=== PATIENT | male | born 1970 | race Caucasian/White ===

== ENCOUNTER 2016-11-26 12:27 | Emergency (ER) | payer SELFPAY ==
[2016-11-26] MEDS ORDERED: ASPIRIN 81 MG TABLET, CHEWABLE PO ONE (13:01)
[2016-11-26] MEDS ORDERED: NITROGLYCERIN 0.4 MG/TAB 25 TAB/BOTTLE SL ONE (13:08)
--- NOTE | 2016-11-26 13:11 | ER Document Report ---
ED General - General Chief Complaint: Chest Pain Stated Complaint: CHEST PAIN Time Seen by Provider: 11/26/16 13:00 Mode of Arrival: Ambulatory Information source: Patient Notes: Patient presents emergency department with complaints of midsternal chest pain, tightness. Reports symptoms started approximately 630 this morning. Reports pain increased while he was at work. He also complains of pain going down his left arm. Patient is diaphoretic. Reports hurts to take a deep breath. Patient denies fever vomiting diarrhea. Pt holding bilateral arms in flexed position. Denies recent trauma. Reports he lifted a heavy motor yesterday. Denies history of cardiac disease but reports father has a history of cardiac disease. TRAVEL OUTSIDE OF THE [place] IN LAST 30 DAYS: No - HPI Onset: This morning Onset/Duration: Persistent, Worse Quality of pain: Other - tightness Severity: Severe Pain Level: 5 Exacerbated by: Deep breathing Relieved by: Denies Similar symptoms previously: No Recently seen / treated by doctor: No - Related Data Allergies/Adverse Reactions: No Known Allergies Allergy (Verified 11/26/16 16:26) Home Medications: Current Home Medications No Home Medications 11/26/16 [History] Past Medical History - General Information source: Patient - Social History Smoking Status: Unknown if Ever Smoked Cigarette use (# per day): No Chew tobacco use (# tins/day): No Frequency of alcohol use: None Drug Abuse: None Lives with: Family Family History: CAD Musculoskeltal Medical History: Reports Hx Musculoskeletal Trauma Traumatic Medical History: Reports: Hx Fractures Past Surgical History: Reports: Hx Orthopedic Surgery - right femur - Immunizations Immunizations up to date: Yes Hx Diphtheria, Pertussis, Tetanus Vaccination: Yes Review of Systems - Review of Systems Notes: Review HPI for review of systems., All other systems negative Physical Exam - Vital signs Vitals: Resp BP Pulse Ox 18 131/87 H 96 11/26/16 14:01 11/26/16 14:01 11/26/16 14:01 - Notes Notes: PHYSICAL EXAMINATION: GENERAL: nontoxic looking, shaking HEAD: Atraumatic, normocephalic. EYES: Pupils equal round extraocular movements intact, sclera anicteric, conjunctiva are normal. ENT: nares patent, oropharynx clear without exudates. Moist mucous membranes. NECK: Normal range of motion, supple without lymphadenopathy LUNGS: CTAB and equal. No wheezes rales or rhonchi. HEART: Regular rate and rhythm without murmurs ABDOMEN: Soft, no tenderness. No guarding, no rebound EXTREMITIES: Normal range of motion, no pitting edema. No cyanosis. NEUROLOGICAL: Cranial nerves grossly intact. Normal sensory/motor exams. PSYCH: Normal mood, normal affect. SKIN: Warm, Dry, normal turgor, no rashes or lesions noted Course - Re-evaluation Re-evalutation: 11/26/16 13:56 Reports he is feeling a little bit better chest still hurts tender to palpation ibuprofen offered patient requests naproxen. Reports the sublingual nitro made his head throb. 11/26/16 15:22 Pt feeling better, updated on CK, BUN/Cr. , discussed past medical history with patient. He admits to recent ETOH last night- "more than I should've had". He reports he has been sober for a while. Denies recent drug use but reports hx of cocaine use, marijuana a few months ago. 11/26/16 16:43 Urine drug screen + for amphetamines, pt reports he takes adderall. Pt reports he approximately a 5th of whiskey every 2 days for the past year. Pt is tearful. 11/26/16 17:24 Patient drinking p.o. fluids reports he feels much better. denies Chest pain. BUN/creatinine almost back to normall. CK decreased. Patient was encouraged to stop drinking alcohol. Emotional support given. - Vital Signs Vital signs: Temp Pulse Resp BP Pulse Ox 15 142/93 H 98 11/26/16 17:35 11/26/16 17:35 11/26/16 17:35 - Laboratory Result Diagrams: 11/26/16 13:13 11/26/16 16:22 Laboratory results interpreted by me: 11/26/16 11/26/16 11/26/16 13:13 14:57 14:57 BUN 21 H Creatinine 1.39 H Est GFR (Non-Af Amer) 55 L Creatine Kinase 466 H Urine Protein 30 H Urine Ketones TRACE H Urine Bilirubin SMALL H Ur Leukocyte Esterase TRACE H Urine Creatinine 473.5 H 11/26/16 11/26/16 16:22 16:22 BUN Creatinine 1.30 H Est GFR (Non-Af Amer) Creatine Kinase 383 H Urine Protein Urine Ketones Urine Bilirubin Ur Leukocyte Esterase Urine Creatinine - Diagnostic Test Radiology reviewed: Image reviewed, Reports reviewed - neg X-ray - EKG Interpretation by Me EKG shows normal: Sinus rhythm Rate: Tachycardia When compared to previous EKG there are: No significant change Discharge - Discharge Clinical Impression: Chest pain in adult, Elevated blood pressure reading Condition: Stable Disposition: HOME, SELF-CARE Instructions: Chronic Alcoholism ([facility]), Family Physicians / Practices Additional Instructions: *You have been evaluated for chest pain of unclear cause, elevated blood pressure reading *Avoid alcohol *Push fluids *Follow up with a primary care provider Monday for recheck *Return to ED for worsening condition, changes, needs Monitor your blood pressure. Your blood pressure was elevated today. This may be because you were anxious, in pain or because you need medication. It is important to follow up with your primary care provider for full evaluation. Forms: Elevated Blood Pressure
[2016-11-26 13:33] LABS: ABSOLUTE LYMPHOCYTES (AUTO) 1.1 10^3/uL (0.5-4.7); ABSOLUTE MONOCYTES (AUTO) 0.9 10^3/uL (0.1-1.4); ABSOLUTE NEUT (AUTO) 5.1 10^3/uL (1.7-8.2); BASOPHILS % (AUTO) 0.4 % (0-2); EOSINOPHILS % (AUTO) 0.4 % (0-6); HEMATOCRIT 42.9 % (37.9-51.0); HGB HCT DIFFERENCE 2.1; LYMPHOCYTES % (AUTO) 15.5 % (13-45); MEAN CORPUSCULAR HEMOGLOBIN 32.2 pg (27.0-33.4); MEAN CORPUSCULAR HGB CONC 34.9 g/dL (32.0-36.0); MEAN CORPUSCULAR VOLUME 92 fl (80-97); MONOCYTES % (AUTO) 12.7 % (3-13); RED BLOOD COUNT 4.65 10^6/uL (4.35-5.55); RED CELL DISTRIBUTION WIDTH 13.6 % (11.5-14.0); WHITE BLOOD COUNT 7.1 10^3/uL (4.0-10.5)
[2016-11-26 13:54] LABS: ALANINE AMINOTRANSFERASE 38 U/L (21-72); ALBUMIN 4.6 g/dL (3.5-5.0); ALKALINE PHOSPHATASE 58 U/L (38-126); ANION GAP 12 (5-19); ASPARTATE AMINO TRANSFERASE 49 U/L (17-59); BILIRUBIN,DIRECT 0.4 mg/dL (0.0-0.4); BILIRUBIN,TOTAL 0.7 mg/dL (0.2-1.3); BLOOD UREA NITROGEN 21 mg/dL (7-20); CALCIUM 9.9 mg/dL (8.4-10.2); CARBON DIOXIDE 28 mmol/L (22-30); CHLORIDE 100 mmol/L (98-107); CREATINE KINASE 466 U/L (55-170); CREATININE RESULT 1.39 mg/dL (0.52-1.25); GLUCOSE 88 mg/dL (75-110); POTASSIUM 4.5 mmol/L (3.6-5.0); SODIUM 140.3 mmol/L (137-145); TOTAL PROTEIN 7.6 g/dL (6.3-8.2)
--- NOTE | 2016-11-26 13:54 | RADIOLOGY REPORT (SQ) ---
EXAM DESCRIPTION: CHEST SINGLE VIEW COMPLETED DATE/TIME: 11/26/2016 1:28 pm REASON FOR STUDY: chest pain COMPARISON: Chest films 05/03/2016 EXAM PARAMETERS: NUMBER OF VIEWS: One view. TECHNIQUE: Single frontal radiographic view of the chest acquired. RADIATION DOSE: NA LIMITATIONS: None. FINDINGS: LUNGS AND PLEURA: No opacities, masses or pneumothorax. No pleural effusion. MEDIASTINUM AND HILAR STRUCTURES: No masses. Contour normal. HEART AND VASCULAR STRUCTURES: Heart normal in size. Normal vasculature. BONES: No acute findings. HARDWARE: None in the chest. OTHER: No other significant finding. IMPRESSION: NO ACUTE RADIOGRAPHIC FINDING IN THE CHEST. TECHNICAL DOCUMENTATION: JOB ID: [id number]
[2016-11-26] MEDS ORDERED: NAPROXEN 250 MG TABLET PO ONE (13:55)
[2016-11-26 14:06] LABS: CREATINE KINASE MB 2.14 ng/mL (<4.55)
[2016-11-26 14:08] LABS: TROPONIN I < 0.012 ng/mL
[2016-11-26] MEDS ORDERED: NORMAL SALINE 1000 ML 1,000 ML IV ONE ×2 (14:27→16:34)
[2016-11-26 15:49] LABS: URINE BARBITURATES SCREEN NEGATIVE; URINE METHADONE SCREEN NEGATIVE; URINE OPIATES LOW NEGATIVE; URINE PHENCYCLIDINE SCREEN NEGATIVE
[2016-11-26 16:04] LABS: APPEARANCE,URINE CLEAR; BILIRUBIN,URINE SMALL (NEGATIVE); GLUCOSE, URINE NEGATIVE (NEGATIVE); KETONES,URINE TRACE mg/dL (NEGATIVE); LEUKOCYTE ESTERASE,URINE TRACE (NEGATIVE); NITRITE,URINE NEGATIVE (NEGATIVE); PROTEIN,URINE 30 mg/dL (NEGATIVE); URINE SPECIFIC GRAVITY 1.035; UROBILINOGEN,URINE NEGATIVE mg/dL (<2.0)
[2016-11-26 16:48] LABS: BLOOD UREA NITROGEN 19 mg/dL (7-20); CREATINE KINASE 383 U/L (55-170)
[2016-11-26 17:42] VITALS: BP 142/93
--- NOTE | 2016-11-27 21:26 | EKG REPORT ---
SEVERITY:- OTHERWISE NORMAL ECG - SINUS TACHYCARDIA : Confirmed by: Sixto Peters MD 27-Nov-2016 21:25:09
== END 2016-11-26 17:52 | disposition home or self-care (01) ==
LOC: ER 12:27
DX: R07.9 Chest pain, unspecified (principal); R03.0 Elevated blood-pressure reading, without diagnosis of hypertension; M79.602 Pain in left arm; R61 Generalized hyperhidrosis; X50.0XXA Overexertion from strenuous movement or load, initial encounter
CPT/HCPCS: 99285; 36415; 82553; 84520; 82550; 82565; 82570; 85025; 80053; 81001; 84484; 80307; 71010; 93010; J7030

== ENCOUNTER 2017-10-08 10:08 | Emergency (ER) | payer BC ==
[2017-10-08 11:25] VITALS: BP 134/79
--- NOTE | 2017-10-08 11:25 | ER Document Report ---
ED General - General Chief Complaint: Stiff Neck Stated Complaint: ARM NUMBNESS Time Seen by Provider: 10/08/17 10:24 Notes: Patient says he is having tingling and numbness of his left arm and also feels he stumbling when he tries to walk. He says the tingling and numbness in the hands has been going on intermittently for a couple of years. He says it only happens when he is laying down and reading his telephone and stops when he moves his arms. He has never been told he has carpal tunnel syndrome. Says he is having some stumbling today. 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 He says he went to work as a hannah says he is never lost consciousness or fallen, but feels lightheaded. 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 He says this is the first time he has had problems with gripping and dropping objects. Patient says he fell from some scaffolding last week and hit his right head and neck and right side. He has had some headache since last night, but it went away during the night but came back today. Has some heavy feeling when he is breathing, but denies chest pain. Says he has a right hip that needs to be replaced because of arthritis but does not have the money. Patient says that he has been from his for about 2 months, something he did not want to happen but has no control over. Said he was extremely sad and cried and cried when it happened. Went out with his son and last night to celebrate Father's Day. Not sure if stress could be playing a role in some of the symptoms that he is having. TRAVEL OUTSIDE OF THE [place] IN LAST 30 DAYS: No - Related Data Allergies/Adverse Reactions: No Known Allergies Allergy (Verified 10/08/17 10:09) Past Medical History - Social History Smoking Status: Never Smoker Frequency of alcohol use: None Drug Abuse: None Family History: Reviewed & Not Pertinent, CAD Patient has suicidal ideation: No Patient has homicidal ideation: No - Medical History Medical History: Negative - Past Medical History Cardiac Medical History: Denies: Hx Coronary Artery Disease, Hx Heart Attack Neurological Medical History: Denies: Hx Cerebrovascular Accident, Hx Seizures Endocrine Medical History: Denies: Hx Diabetes Mellitus Type 1, Hx Diabetes Mellitus Type 2 Renal/ Medical History: Denies: Hx Peritoneal Dialysis Musculoskeltal Medical History: Reports Hx Musculoskeletal Trauma Traumatic Medical History: Reports: Hx Fractures Past Surgical History: Reports: Hx Orthopedic Surgery - right femur - Immunizations Immunizations up to date: Yes Hx Diphtheria, Pertussis, Tetanus Vaccination: Yes Review of Systems - Review of Systems Notes: REVIEW OF SYSTEMS: CONSTITUTIONAL : Denies fever. EENT: Denies eye, ear, nose or mouth or throat pain or other symptoms. CARDIOVASCULAR: Denies chest pain. RESPIRATORY: Denies cough, chest congestion, some heavy feeling with respirations but not actual shortness of breath. GASTROINTESTINAL: Denies abdominal pain or nausea, vomiting, or diarrhea. GENITOURINARY: Denies difficulty or painful urinating, urinary frequency, blood in urine. MUSCULOSKELETAL: Denies back or neck pain. Denies joint pain or swelling. SKIN: Denies rash or skin lesions. NEUROLOGICAL: Denies LOC or altered mental status. Headache since last night, global. Denies sensory loss or motor deficits. ALL OTHER SYSTEMS REVIEWED AND NEGATIVE. Physical Exam - Vital signs Vitals: Temp Pulse Resp BP Pulse Ox 98.8 F 101 H 16 142/73 H 97 10/08/17 10:17 10/08/17 10:17 10/08/17 10:17 10/08/17 10:17 10/08/17 10:17 Interpretation: Normal - Notes Notes: PHYSICAL EXAMINATION: GENERAL: Well-appearing, in no acute distress. Ambulatory without difficulty. Vital signs are all normal. 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 HEAD: Atraumatic, normocephalic. EYES: Pupils equal round and reactive to light, extraocular movements intact. ENT: oropharynx clear without exudates. Moist mucous membranes. NECK: Normal range of motion, supple. LUNGS: Breath sounds clear and equal bilaterally. HEART: Regular rate and rhythm without murmurs. ABDOMEN: Soft, nontender. No guarding or rebound. No masses. BACK: No tenderness throughout entire back. EXTREMITIES: Normal range of motion without pain. NEUROLOGICAL: Normal speech, normal gait. Normal sensory, motor, and reflex exams. Awake, alert, and oriented x3. Cranial nerves normal. PSYCH: Normal mood, normal affect. SKIN: Warm, dry, no rashes. Course - Re-evaluation Re-evalutation: 10/08/17 15:02 Patient has received 2 L of saline IV and has pulled his own needles out. Patient says he wants to leave and undergo no further workup or treatment. Saying that he does feel somewhat better since getting the IV fluid. I explained to him about elevated CPK and also his kidney function and the need to adjust his work, especially this time a year when he is not acclimated to the heat. He says he cannot do that. I also told him that I have not completely excluded the possibility that his symptoms may in part be due to anxiety or stress. Patient says he cannot wait any longer or stay any longer because it is Father's Day and he wants to leave. Advised him of possible complications or problems without further evaluation. Advised about drinking plenty of fluids and avoiding heavy workload in the heat in the coming days to weeks. - Vital Signs Vital signs: Temp Pulse Resp BP Pulse Ox 98.8 F 101 H 19 134/79 H 99 10/08/17 10:17 10/08/17 10:17 10/08/17 11:00 10/08/17 11:00 10/08/17 11:00 - Laboratory Result Diagrams: 10/08/17 11:18 10/08/17 11:18 Laboratory results interpreted by me: 10/08/17 11:18 BUN 25 H Creatinine 1.29 H Creatine Kinase 955 H Discharge - Discharge Clinical Impression: Dehydration, Elevated creatine phosphokinase level Condition: Stable Disposition: HOME, SELF-CARE Additional Instructions: Dehydration Dehydration can result from vomiting or diarrhea, fever, or decreased intake of fluids. If severe, hospitalization and intravenous fluids may be required. Most cases are treated at home with fluids by mouth. For the next 24 hours, drink lots of clear fluids. In mild cases, this can be soda pop or sports drinks. For more severe dehydration, the doctor may recommend special fluids such as Pedialyte or Lytren. Try to get three liters ( 3 quarts) of fluid per day. If vomiting occurs, continue to drink the fluids frequently (every 15 to 20 minutes), but in small amounts (one or two ounces). Depending on the type of dehydration, the doctor may prescribe antinausea medicine or potassium replacements. Call the doctor or return for re-examination if you become progressively weak, vomit repeatedly, or have other new symptoms. You have elevation of your CPK, creatinine phosphokinase, which comes from overuse of muscles and overheating of your body. I recommend you try to take it easy at work for the next few days doing very limited heavy lifting. Take frequent breaks. Drink plenty of fluids!. Return if your urine turns very dark or appears to be bloody. Return if you develop new or worsening symptoms. FOLLOW-UP CARE: If you have been referred to a physician for follow-up care, call the physician s office for an appointment as you were instructed or within the next two days. If you experience worsening or a significant change in your symptoms, notify the physician immediately or return to the Emergency Department at any time for re-evaluation.
[2017-10-08 11:32] LABS: ABSOLUTE EOSINOPHILS # (AUTO) 0.1 10^3/uL (0.0-0.6); ABSOLUTE LYMPHOCYTES (AUTO) 1.2 10^3/uL (0.5-4.7); ABSOLUTE MONOCYTES (AUTO) 0.7 10^3/uL (0.1-1.4); ABSOLUTE NEUT (AUTO) 4.5 10^3/uL (1.7-8.2); BASOPHILS % (AUTO) 0.6 % (0-2); EOSINOPHILS % (AUTO) 0.9 % (0-6); HEMATOCRIT 42.4 % (37.9-51.0); HEMOGLOBIN 14.6 g/dL (13.5-17.0); MEAN CORPUSCULAR HEMOGLOBIN 31.6 pg (27.0-33.4); MEAN CORPUSCULAR HGB CONC 34.5 g/dL (32.0-36.0); MEAN CORPUSCULAR VOLUME 92 fl (80-97); MONOCYTES % (AUTO) 10.6 % (3-13); PLATELET COUNT 308 10^3/uL (150-450); RED BLOOD COUNT 4.63 10^6/uL (4.35-5.55); RED CELL DISTRIBUTION WIDTH 13.7 % (11.5-14.0); SEGMENTED NEUTROPHILS % (AUTO) 69.9 % (42-78); TOTAL CELLS COUNTED % (AUTO) 100 %; WHITE BLOOD COUNT 6.4 10^3/uL (4.0-10.5)
[2017-10-08 11:55] LABS: ALANINE AMINOTRANSFERASE 45 U/L (21-72); ALBUMIN 4.2 g/dL (3.5-5.0); ALKALINE PHOSPHATASE 59 U/L (38-126); ANION GAP 11 (5-19); ASPARTATE AMINO TRANSFERASE 53 U/L (17-59); BILIRUBIN,DIRECT 0.3 mg/dL (0.0-0.4); BILIRUBIN,TOTAL 0.6 mg/dL (0.2-1.3); BLOOD UREA NITROGEN 25 mg/dL (7-20); CALCIUM 9.8 mg/dL (8.4-10.2); CARBON DIOXIDE 30 mmol/L (22-30); CHLORIDE 102 mmol/L (98-107); CREATINE KINASE 955 U/L (55-170); GLUCOSE 95 mg/dL (75-110); POTASSIUM 4.6 mmol/L (3.6-5.0); SODIUM 143.1 mmol/L (137-145); TOTAL PROTEIN 6.7 g/dL (6.3-8.2)
[2017-10-08 11:57] LABS: ALCOHOL < 10 mg/dL (NONE DETECTED)
--- NOTE | 2017-10-08 12:00 | RADIOLOGY REPORT (SQ) ---
EXAM DESCRIPTION: CT HEAD WITHOUT COMPLETED DATE/TIME: 10/08/2017 11:35 am REASON FOR STUDY: Numb, tingling left arm; fall 1 wk hit right head/ COMPARISON: None. TECHNIQUE: Axial images acquired through the brain without intravenous contrast. Images reviewed wi th bone, brain and subdural windows. Additional sagittal and coronal reconstructions were generated. Images stored on PACS. All CT scanners at this facility use dose modulation, iterative reconstruction, and/or weight based d osing when appropriate to reduce radiation dose to as low as reasonably achievable (ALARA). [facility]: Dose Right [facility]: CareDose [facility]: Dose Right [facility]: Teradose 4D [facility]: Smart NERITES RADIATION DOSE: CT Rad equipment meets quality standard of care and radiation dose reduction techniq ues were employed. CTDIvol: 53.2 mGy. DLP: 937 mGy-cm. mGy. LIMITATIONS: None. FINDINGS: VENTRICLES: Normal size and contour. CEREBRUM: No masses. No hemorrhage. No midline shift. No evidence for acute infarction. Normal gra y/white matter differentiation. No areas of low density in the white matter. CEREBELLUM: No masses. No hemorrhage. No alteration of density. No evidence for acute infarction. EXTRAAXIAL SPACES: No fluid collections. No masses. ORBITS AND GLOBE: No intra- or extraconal masses. Normal contour of globe without masses. CALVARIUM: No fracture. PARANASAL SINUSES: No fluid or mucosal thickening. SOFT TISSUES: No mass or hematoma. OTHER: No other significant finding. IMPRESSION: NORMAL BRAIN CT WITHOUT CONTRAST. EVIDENCE OF ACUTE STROKE: NO. COMMENT: Quality ID # [id number]: Final reports with documentation of one or more dose reduction techniques (e.g., Automated exposure control, adjustment of the mA and/or kV according to patient size, use of iterative reconstruction technique) TECHNICAL DOCUMENTATION: JOB ID: [id number] [employer]- All Rights Reserved Reading location - IP/workstation name: [email or web address]
--- NOTE | 2017-10-08 12:04 | RADIOLOGY REPORT (SQ) ---
EXAM DESCRIPTION: CT CERVICAL SPINE WITHOUT COMPLETED DATE/TIME: 10/08/2017 11:35 am REASON FOR STUDY: Numb, tingling left arm; fall 1 wk hit right neck COMPARISON: None. TECHNIQUE: Axial images acquired through the cervical spine without intravenous contrast. Images re viewed with lung, soft tissue and bone windows. Reconstructed coronal and sagittal MPR images review ed. Images stored on PACS. All CT scanners at this facility use dose modulation, iterative reconstruction, and/or weight based d osing when appropriate to reduce radiation dose to as low as reasonably achievable (ALARA). [facility]: Dose Right [facility]: CareDose [facility]: Dose Right [facility]: Teradose 4D [facility]: Smart [facility] RADIATION DOSE: CT Rad equipment meets quality standard of care and radiation dose reduction techniq ues were employed. CTDIvol: 20.1 mGy. DLP: 419 mGy-cm. mGy. LIMITATIONS: None. FINDINGS: ALIGNMENT: Anatomic. MINERALIZATION: Normal. VERTEBRAL BODIES: No fractures or dislocation. DISCS: Craniocervical junction, C1-2, C2-3, C3-4 and C4-5 are unremarkable. At C5-6, broad diffuse posterior disc bulge and bony spurring is present with mild central canal narr owing. High-grade bilateral foraminal narrowing from facet and uncovertebral hypertrophy. At C6-7, no central stenosis is present. Minimal bilateral foraminal narrowing from facet and uncove rtebral hypertrophy. C7-T1 is unremarkable. FACETS, LATERAL MASSES, POSTERIOR ELEMENTS: No fractures. No dislocation. No acute findings. HARDWARE: None in the spine. VISUALIZED RIBS: No fractures. LUNG APICES AND SOFT TISSUES: No significant or acute findings. OTHER: No other significant finding. IMPRESSION: Degenerative disc changes at C5-6 with high-grade bilateral foraminal narrowing TECHNICAL DOCUMENTATION: JOB ID: [id number] Quality ID # [id number]: Final reports with documentation of one or more dose reduction techniques (e.g., Au tomated exposure control, adjustment of the mA and/or kV according to patient size, use of iterative reconstruction technique) 2010 [employer]- All Rights Reserved Reading location - IP/workstation name: [email or web address]
[2017-10-08 12:07] LABS: TROPONIN I < 0.012 ng/mL
[2017-10-08 12:36] LABS: AMORPHOUS SEDIMENT,URINE TRACE /HPF; APPEARANCE,URINE SLIGHTLY-CLOUDY; BILIRUBIN,URINE NEGATIVE (NEGATIVE); COLOR,URINE YELLOW; GLUCOSE, URINE NEGATIVE (NEGATIVE); KETONES,URINE NEGATIVE (NEGATIVE); LEUKOCYTE ESTERASE,URINE NEGATIVE (NEGATIVE); NITRITE,URINE NEGATIVE (NEGATIVE); PROTEIN,URINE NEGATIVE (NEGATIVE); UROBILINOGEN,URINE NEGATIVE mg/dL (<2.0)
[2017-10-08 12:39] LABS: URINE AMPHETAMINES SCREEN NEGATIVE; URINE BARBITURATES SCREEN NEGATIVE; URINE BENZODIAZEPINES SCREEN NEGATIVE; URINE COCAINE SCREEN NEGATIVE; URINE MARIJUANA (THC) SCREEN NEGATIVE; URINE METHADONE SCREEN NEGATIVE; URINE PHENCYCLIDINE SCREEN NEGATIVE
[2017-10-08] MEDS ORDERED: NORMAL SALINE 1000 ML 1,000 ML IV PRN (13:07)
--- NOTE | 2017-10-08 15:49 | EKG REPORT ---
SEVERITY:- BORDERLINE ECG - SINUS RHYTHM BORDERLINE T WAVE ABNORMALITIES : Confirmed by: Sixto Peters MD 08-Oct-2017 15:49:17
== END 2017-10-08 15:07 | disposition home or self-care (01) ==
LOC: ER 10:08
DX: E86.0 Dehydration (principal); R94.4 Abnormal results of kidney function studies; M43.6 Torticollis; R20.0 Anesthesia of skin
CPT/HCPCS: 93005; 99284; 96360; 36415; 82553; 80307 ×2; 82550; 85025; 80053; 81001; 84484; 70450; 72125; 93010; J7030

== ENCOUNTER 2018-01-09 11:06 | Emergency (ER) | payer BC ==
--- NOTE | 2018-01-09 11:51 | ER Document Report ---
ED Extremity Problem, Upper - General Chief Complaint: Arm Pain Stated Complaint: LEFT ARM PAIN Time Seen by Provider: 01/09/18 11:50 Mode of Arrival: Ambulatory Information source: Patient TRAVEL OUTSIDE OF THE [place] IN LAST 30 DAYS: No - HPI Patient complains to provider of: Injury, Pain Onset: Yesterday Recent injury: Possibly Where: Home Quality of pain: Fullness, Other - SORENESS Severity of pain: Moderate Context: Other - TRYING TO PULL TRAMPOLINE OUT OF THICKET, FELT A TEARING SENSATION IN ARM Associated symptoms: None Exacerbated by: Movement Relieved by: Positioning Similar symptoms previously: No Recently seen / treated by doctor: No - Related Data Allergies/Adverse Reactions: No Known Allergies Allergy (Verified 01/09/18 11:07) Past Medical History - General Information source: Patient - Social History Smoking Status: Current Every Day Smoker Frequency of alcohol use: Occasional Drug Abuse: Heroin Lives with: Family Family History: Reviewed & Not Pertinent, CAD Patient has suicidal ideation: No Patient has homicidal ideation: No - Past Medical History Cardiac Medical History: Reports: None Denies: Hx Coronary Artery Disease, Hx Heart Attack Pulmonary Medical History: Reports: None Neurological Medical History: Reports: None. Denies: Hx Cerebrovascular Accident, Hx Seizures Endocrine Medical History: Reports: None. Denies: Hx Diabetes Mellitus Type 1, Hx Diabetes Mellitus Type 2 Renal/ Medical History: Reports: None. Denies: Hx Peritoneal Dialysis GI Medical History: Reports: None Musculoskeletal Medical History: Reports Hx Musculoskeletal Trauma Psychiatric Medical History: Reports: None Traumatic Medical History: Reports: Hx Fractures Past Surgical History: Reports: Hx Orthopedic Surgery - right femur - Immunizations Immunizations up to date: Yes Hx Diphtheria, Pertussis, Tetanus Vaccination: Yes Review of Systems - Review of Systems Constitutional: No symptoms reported EENT: No symptoms reported Cardiovascular: No symptoms reported Respiratory: No symptoms reported Gastrointestinal: No symptoms reported Musculoskeletal: See HPI Skin: No symptoms reported Neurological/Psychological: No symptoms reported Physical Exam - Vital signs Vitals: Temp Pulse Resp BP Pulse Ox 98.3 F 96 16 145/87 H 98 01/09/18 11:13 01/09/18 11:13 01/09/18 11:13 01/09/18 11:13 01/09/18 11:13 Interpretation: Hypertensive - General General appearance: Appears well, Alert In distress: None Notes: VERY MUSCULAR, WORKS [employer]. - HEENT Head: Normocephalic Eyes: Normal Ears: Normal Nasal: Normal Mouth/Lips: Normal Mucous membranes: Normal - Respiratory Respiratory status: No respiratory distress - Cardiovascular Rhythm: Regular - Abdominal Inspection: Normal - Extremities General upper extremity: No: Normal inspection - L. ARM (SEE BELOW) Arm: Other - ACTIVE ELBOW FLEXION INTACT. Elbow: Tender - AROUND ELBOW AND DISTAL BICEPS, Deformity - FOSSAON MEDIAL ASPECT OF DISTAL BICEPS, NEAR MUSCULOTENDINOUS JUNCTION. - Neurological Neuro grossly intact: Yes - Psychological Associated symptoms: Normal affect, Normal mood - Skin Skin Temperature: Warm Skin Moisture: Dry Skin Color: Normal Skin Turgor: Elastic Course - Vital Signs Vital signs: Temp Pulse Resp BP Pulse Ox 98.3 F 96 16 145/87 H 98 01/09/18 11:13 01/09/18 11:13 01/09/18 11:13 01/09/18 11:13 01/09/18 11:13 - Consults DR. SHAH Time consulted: 12:50 Consulted provider: follow-up in office Discharge - Discharge Clinical Impression: Biceps muscle tear Qualifiers: Encounter type: initial encounter Laterality: left Qualified Code(s): S46.112A - Strain of muscle, fascia and tendon of long head of biceps, left arm, initial encounter Condition: Stable Disposition: HOME, SELF-CARE Instructions: Ice & Elevation ([facility]), Ibuprofen (General) ([facility]), Oral Narcotic Medication ([facility]), Sling as Treatment ([facility]) Additional Instructions: AVOID PAINFUL ACTIVITY. KEEP LEFT ARM IN SLING MUCH POSSIBLE. CONTINUE TAKING IBUPROFEN, 800 mg THREE TIMED A DAY. YOU MAY TAKE NORCO FOR MORE SEVERE PAIN IF NEEDED. FOLLOW UP TOMORROW AT 9:[address] SHAH. Prescriptions: Hydrocodone/Acetaminophen [Macon 5-325 mg Tablet] 1 tab PO Q4HP PRN #14 tablet PRN Reason: For Pain Ibuprofen [Motrin 800 mg Tablet] 800 mg PO Q8 PRN #20 tablet PRN Reason: For Pain Referrals: SHIV SHAH DO [ACTIVE STAFF] - Follow up tomorrow
--- NOTE | 2018-01-09 13:14 | RADIOLOGY REPORT (SQ) ---
EXAM DESCRIPTION: ELBOW LEFT OVER 2 VIEWS COMPLETED DATE/TIME: 01/09/2018 12:52 pm REASON FOR STUDY: INJURY COMPARISON: None. NUMBER OF VIEWS: Four views. TECHNIQUE: AP, lateral, and both oblique radiographic images acquired of the left elbow. LIMITATIONS: None. FINDINGS: MINERALIZATION: Normal. BONES: No acute fracture or dislocation. No worrisome bone lesions. JOINT: No effusion. SOFT TISSUES: No soft tissue swelling. No foreign body. OTHER: No other significant finding. IMPRESSION: NEGATIVE STUDY OF THE LEFT ELBOW. NO RADIOGRAPHIC EVIDENCE OF ACUTE INJURY. TECHNICAL DOCUMENTATION: JOB ID: [id number] [employer]- All Rights Reserved Reading location - IP/workstation name: [email or web address]
[2018-01-09 13:29] VITALS: BP 145/93
== END 2018-01-09 13:27 | disposition home or self-care (01) ==
LOC: ER 11:06
DX: S46.112A Strain of muscle, fascia and tendon of long head of biceps, left arm, initial encounter (principal); X50.9XXA Other and unspecified overexertion or strenuous movements or postures, initial encounter; Y93.89 Activity, other specified; Y92.009 Unspecified place in unspecified non-institutional (private) residence as the place of occurrence of the external cause; F11.10 Opioid abuse, uncomplicated; F17.200 Nicotine dependence, unspecified, uncomplicated
CPT/HCPCS: 99283

== ENCOUNTER 2018-11-29 18:32 | Emergency (ER) | payer SELFPAY ==
--- NOTE | 2018-11-29 19:18 | ER Document Report ---
ED Medical Screen (RME) - General Chief Complaint: Leg Pain Stated Complaint: LEG PAIN Time Seen by Provider: 11/29/18 19:15 Mode of Arrival: Ambulatory Information source: Patient Notes: 48-year-old male presented to ED for complaint of pain redness and swelling to his left leg. He states he has been giving himself testosterone for the last 7 years and about 3 years ago he started getting some Decadron to help with the healing and discomfort. He states that he had some redness and swelling to his left thigh so he took some amoxicillin and took a bath and some Epson salt and felt the redness was getting better but now it is much worse and is going all way down to his knee from his groin area. He states there is a red swollen area to his left thigh. I have greeted and performed a rapid initial assessment of this patient. A comprehensive ED assessment and evaluation of the patient, analysis of test results and completion of medical decision making process will be conducted by an additional ED providers. Dictation of this chart was performed using voice recognition software; therefore, there may be some unintended grammatical errors. TRAVEL OUTSIDE OF THE [place] IN LAST 30 DAYS: No - Related Data Allergies/Adverse Reactions: No Known Allergies Allergy (Verified 11/29/18 18:32) Past Medical History - Past Medical History Cardiac Medical History: Denies: Hx Coronary Artery Disease, Hx Heart Attack Neurological Medical History: Denies: Hx Cerebrovascular Accident, Hx Seizures Endocrine Medical History: Denies: Hx Diabetes Mellitus Type 1, Hx Diabetes Mellitus Type 2 Renal/ Medical History: Denies: Hx Peritoneal Dialysis Musculoskeltal Medical History: Reports Hx Musculoskeletal Trauma Traumatic Medical History: Reports: Hx Fractures Past Surgical History: Reports: Hx Orthopedic Surgery - right femur - Immunizations Immunizations up to date: Yes Hx Diphtheria, Pertussis, Tetanus Vaccination: Yes Physical Exam - Vital signs Vitals: Temp Pulse Resp BP Pulse Ox 99.0 F 97 18 144/91 H 98 11/29/18 18:36 11/29/18 18:36 11/29/18 18:36 11/29/18 18:36 11/29/18 18:36 Course - Vital Signs Vital signs: Temp Pulse Resp BP Pulse Ox 99.0 F 97 18 144/91 H 98 11/29/18 18:36 11/29/18 18:36 11/29/18 18:36 11/29/18 18:36 11/29/18 18:36
[2018-11-29 20:30] LABS: ABSOLUTE BASOPHILS # (AUTO) 0.1 10^3/uL (0.0-0.2); ABSOLUTE EOSINOPHILS # (AUTO) 0.2 10^3/uL (0.0-0.6); ABSOLUTE LYMPHOCYTES (AUTO) 1.1 10^3/uL (0.5-4.7); ABSOLUTE MONOCYTES (AUTO) 1.3 10^3/uL (0.1-1.4); ABSOLUTE NEUT (AUTO) 9.8 10^3/uL (1.7-8.2); BASOPHILS % (AUTO) 0.4 % (0-2); EOSINOPHILS % (AUTO) 1.4 % (0-6); HEMATOCRIT 42.6 % (37.9-51.0); HEMOGLOBIN 14.4 g/dL (13.5-17.0); LYMPHOCYTES % (AUTO) 8.7 % (13-45); MEAN CORPUSCULAR HEMOGLOBIN 31.8 pg (27.0-33.4); MEAN CORPUSCULAR HGB CONC 33.9 g/dL (32.0-36.0); MEAN CORPUSCULAR VOLUME 94 fl (80-97); MONOCYTES % (AUTO) 10.6 % (3-13); PLATELET COUNT 289 10^3/uL (150-450); RED BLOOD COUNT 4.54 10^6/uL (4.35-5.55); SEGMENTED NEUTROPHILS % (AUTO) 78.9 % (42-78); TOTAL CELLS COUNTED % (AUTO) 100 %; WHITE BLOOD COUNT 12.5 10^3/uL (4.0-10.5)
[2018-11-29 20:54] LABS: ALBUMIN 4.7 g/dL (3.5-5.0); ALKALINE PHOSPHATASE 80 U/L (38-126); ANION GAP 12 (5-19); ASPARTATE AMINO TRANSFERASE 50 U/L (17-59); BILIRUBIN,DIRECT 0.4 mg/dL (0.0-0.4); BILIRUBIN,TOTAL 0.7 mg/dL (0.2-1.3); BLOOD UREA NITROGEN 16 mg/dL (7-20); CALCIUM 10.1 mg/dL (8.4-10.2); CARBON DIOXIDE 31 mmol/L (22-30); CHLORIDE 95 mmol/L (98-107); GLUCOSE 92 mg/dL (75-110); POTASSIUM 3.6 mmol/L (3.6-5.0); TOTAL PROTEIN 7.7 g/dL (6.3-8.2)
[2018-11-29 21:05] LABS: C-REACTIVE PROTEIN 151.1 mg/L (<10.0)
[2018-11-29 21:10] LABS: ERYTHROCYTE SEDIMENTATION RATE 65 mm/hr (0-15)
[2018-11-29] MEDS ORDERED: MORPHINE SULFATE 10 MG/ML INJ IV ONE (21:42)
[2018-11-29] MEDS ORDERED: SULFAMETHOXAZOLE/TRIMETHOPRIM 800-160 MG TABLET PO ONE (21:42)
[2018-11-29] MEDS ORDERED: CEFTRIAXONE 1 GM/D5W RTU 1 GM/50 ML RTUPB IV ONE (21:42)
[2018-11-29] MEDS ORDERED: ONDANSETRON HCL INJ/PF 4 MG/2 ML SDV IV ONE (21:42)
[2018-11-29] MEDS ORDERED: DIPH/PERTUSS(ACELL)/TETANUS VAC/PF 0.5 ML SYR (>=10YO) IM ONE (21:46)
--- NOTE | 2018-11-29 21:47 | ER Document Report ---
ED Extremity Problem, Lower - General Chief Complaint: Leg Pain Stated Complaint: LEG PAIN Time Seen by Provider: 11/29/18 19:15 Mode of Arrival: Ambulatory Notes: Patient is a 48-year-old male that comes emergency department for chief complaint of pain, redness, and spreading redness to the left thigh area. He states that he does perform self injections to the area, testosterone and occasionally Decadron, he states that he noticed about 5 days ago that he was starting to get some redness and swelling, he took 2 doses of amoxicillin, the areas seem to be getting better up until the past day or so and it has continued to worsen with spreading down his left thigh area to just past the left knee. He denies fever/chills. His tetanus is not up-to-date. TRAVEL OUTSIDE OF THE [place] IN LAST 30 DAYS: No - Related Data Allergies/Adverse Reactions: No Known Allergies Allergy (Verified 11/29/18 18:32) Past Medical History - General Information source: Patient - Social History Smoking Status: Never Smoker Frequency of alcohol use: Heavy Lives with: Spouse/Significant other Family History: Reviewed & Not Pertinent, CAD Patient has suicidal ideation: No Patient has homicidal ideation: No - Past Medical History Cardiac Medical History: Denies: Hx Coronary Artery Disease, Hx Heart Attack Neurological Medical History: Denies: Hx Cerebrovascular Accident, Hx Seizures Endocrine Medical History: Denies: Hx Diabetes Mellitus Type 1, Hx Diabetes Mellitus Type 2 Renal/ Medical History: Denies: Hx Peritoneal Dialysis Musculoskeletal Medical History: Reports Hx Musculoskeletal Trauma Traumatic Medical History: Reports: Hx Fractures Past Surgical History: Reports: Hx Orthopedic Surgery - right femur - Immunizations Immunizations up to date: Yes Hx Diphtheria, Pertussis, Tetanus Vaccination: Yes Review of Systems - Review of Systems Constitutional: No symptoms reported EENT: No symptoms reported Cardiovascular: No symptoms reported Respiratory: No symptoms reported Gastrointestinal: No symptoms reported Genitourinary: No symptoms reported Male Genitourinary: No symptoms reported Musculoskeletal: See HPI Skin: See HPI Hematologic/Lymphatic: No symptoms reported Neurological/Psychological: No symptoms reported Physical Exam - Vital signs Vitals: Temp Pulse Resp BP Pulse Ox 99.0 F 97 18 144/91 H 98 11/29/18 18:36 11/29/18 18:36 11/29/18 18:36 11/29/18 18:36 11/29/18 18:36 - Notes Notes: GENERAL: Alert, interacts well. No acute distress. HEAD: Normocephalic, atraumatic. EYES: Pupils equal, round, and reactive to light. Extraocular movements intact. ENT: Oral mucosa moist, tongue midline. Oropharynx unremarkable. Airway patent. LUNGS: Clear to auscultation bilaterally, no wheezes, rales, or rhonchi. No respiratory distress. HEART: Regular rate and rhythm. No murmur ABDOMEN: Soft, non-tender. Non-distended. Bowel sounds present in all 4 quadrants. GENITOURINARY: Deferred EXTREMITIES: Moves all 4 extremities spontaneously. No erythema, warmth, some mild tenderness over the proximal thigh medially which extends up towards the top of the leg and down towards the side of the left knee. Full range of motion of the hip and knee. No induration or fluctuance. No wounds. No severe tender ness. BACK: no cervical, thoracic, lumbar midline tenderness. No saddle anesthesia, normal distal neurovascular exam. Moves all extremities in full range of motion. NEUROLOGICAL: Alert and oriented x3. Normal speech. Cranial nerves II through XII grossly intact. PSYCH: Normal affect, normal mood. SKIN: Warm, dry, normal turgor. Course - Re-evaluation Re-evalutation: Patient has tenderness, warmth, erythema consistent with cellulitis over the left mid thigh extending all the way down to the medial aspect beside the knee. There is no induration or fluctuance. I did discuss imaging to rule out foreign body because of the injections but patient declined. He states he is absolutely certain there is not one and he does not need imaging. Area was traced. Patient is otherwise very well-appearing. No fever. Tetanus updated. Patient states that in no circumstance will he be admitted tonight. Patient was given Bactrim and Rocephin. I did review labs from triage including CBC, ESR, CRP, and general chemistry. Patient is not a diabetic. Work-up does show leukocytosis and elevation of both CRP and ESR. However based on patient's exam without induration or fluctuance, without swelling of the area, I do not suspect an abscess in the area. I reevaluated patient after the antibiotics and patient has already had receding of the cellulitis fortunately. Because of patient's good response, lack of risk factors, patient will be trialed on p.o. antibiotics. Discussed with strict return precautions. Patient and significant other state understanding and agreement. Stable at time of discharge. - Vital Signs Vital signs: Temp Pulse Resp BP Pulse Ox 98.8 F 81 18 125/81 99 11/30/18 01:21 11/30/18 01:21 11/30/18 01:21 11/30/18 01:21 11/30/18 01:21 - Laboratory Result Diagrams: 11/29/18 20:01 11/29/18 20:01 Laboratory results interpreted by me: 11/29/18 11/29/18 20:01 20:01 WBC 12.5 H Seg Neutrophils % 78.9 H Lymphocytes % 8.7 L Absolute Neutrophils 9.8 H ESR 65 H Chloride 95 L Carbon Dioxide 31 H Creatinine 1.35 H Est GFR (Non-Af Amer) 57 L C-Reactive Protein 151.1 H Discharge - Discharge Clinical Impression: Left leg cellulitis Condition: Stable Disposition: HOME, SELF-CARE Additional Instructions: Your evaluation shows an infection of the skin called cellulitis. Take the antibiotics as prescribed to completion. Elevate your leg. Rest. Drink plenty of fluids. Return if you worsen in any way including spreading redness, increased swelling or pain, fever/chills, nausea/vomiting, or any other concerning symptoms. Prescriptions: Cephalexin Monohydrate [Keflex 500 mg Capsule] 500 mg PO QID #28 capsule Hydrocodone/Acetaminophen [[place] 5-325 mg Tablet] 1 - 2 tab PO ASDIR #10 tablet Sulfamethoxazole/Trimethoprim [Bactrim Ds Tablet] 1 each PO BID #14 tablet
[2018-11-29] MEDS ORDERED: CEFTRIAXONE INJ 1000 MG VIAL IV ONE (22:42)
[2018-11-30] MEDS ORDERED: HYDROCODONE/ACETAMINOPHEN 5-325 MG (6 TAB/ER DISP) PO PRN (00:52)
[2018-11-30 01:22] VITALS: BP 125/81
== END 2018-11-30 01:30 | disposition home or self-care (01) ==
LOC: ER 18:32
DX: L03.116 Cellulitis of left lower limb (principal); M79.652 Pain in left thigh; Z79.899 Other long term (current) drug therapy
CPT/HCPCS: 99283; 90471; 96375; 96365; 36415; 87040; 85025; 85652; 86140; 80053; 90715; J2270; J0696

== ENCOUNTER 2019-01-01 18:36 | Emergency (ER) | payer SELFPAY ==
[2019-01-01 18:44] VITALS: BP 144/87
== END 2019-01-01 21:00 | disposition left against medical advice (07) ==
LOC: ER 18:36
DX: Z53.21 Procedure and treatment not carried out due to patient leaving prior to being seen by health care provider (principal)

== ENCOUNTER 2019-05-04 11:45 | Emergency (ER) | payer BC ==
[2019-05-04] MEDS ORDERED: DEXAMETHASONE SOD PHOS INJ 10 MG/1 ML VIAL IM ONE (11:55)
[2019-05-04] MEDS ORDERED: KETOROLAC TROMETHAMINE 60 MG/2 ML SDV IM ONE (11:55)
[2019-05-04] MEDS ORDERED: CYCLOBENZAPRINE HCL 10 MG TABLET PO ONE (11:55)
--- NOTE | 2019-05-04 11:57 | ER Document Report ---
ED Medical Screen (RME) - General Chief Complaint: Back Pain Stated Complaint: BACK PAIN Time Seen by Provider: 05/04/19 11:52 Mode of Arrival: Ambulatory Information source: Patient Notes: 48-year-old male patient presenting to the emergency department with 3-day history of back pain. Patient reports pain is located from the cervical region through the thoracic region and finally into the lumbar region with worsening as it progresses downward. He reports pain into both buttocks and down both legs. He reports no specific injury, states he has never had back pain like this before. Denies any IVDU. I will order appropriate medications from triage and then patient needs to be seen in the back for a more comprehensive physical exam with possible imaging based upon exam results and straight leg raises. Exam: Tenderness to palpation in cervical, thoracic and lumbar regions, no step-off or deformity noted. I have greeted and performed a rapid initial assessment of this patient. A comprehensive ED assessment and evaluation of the patient, analysis of test results and completion of the medical decision making process will be conducted by additional ED providers. I have specifically instructed the patient or family members with the patient to immediately return to any nursing staff should anything change in the patient's condition or with their chief complaint. TRAVEL OUTSIDE OF THE [place] IN LAST 30 DAYS: No - Related Data Allergies/Adverse Reactions: No Known Allergies Allergy (Verified 01/01/19 18:37) Past Medical History - Past Medical History Cardiac Medical History: Denies: Hx Coronary Artery Disease, Hx Heart Attack Neurological Medical History: Denies: Hx Cerebrovascular Accident, Hx Seizures Endocrine Medical History: Denies: Hx Diabetes Mellitus Type 1, Hx Diabetes Mellitus Type 2 Renal/ Medical History: Denies: Hx Peritoneal Dialysis Musculoskeltal Medical History: Reports Hx Musculoskeletal Trauma Traumatic Medical History: Reports: Hx Fractures Past Surgical History: Reports: Hx Orthopedic Surgery - right femur - Immunizations Immunizations up to date: Yes Hx Diphtheria, Pertussis, Tetanus Vaccination: Yes
--- NOTE | 2019-05-04 12:11 | ER Document Report ---
ED General - General Chief Complaint: Low Back Pain Stated Complaint: BACK PAIN Time Seen by Provider: 05/04/19 11:52 Primary Care Provider: PRASHANTH MACHADO JR, DO [ACTIVE PROVISIONAL STAFF] - Follow up in 1 week Mode of Arrival: Ambulatory TRAVEL OUTSIDE OF THE [place] IN LAST 30 DAYS: No - HPI Notes: 48-year-old male to the emergency department with complaints of mid back pain all the way down to his buttocks for the past 2 to 3 days. He states that he he woke up like this couple mornings ago. The only thing that he can think of that was different was that they recently put their foam mattress back on their bed about 2 weeks ago. He denies any falls, he denies any heavy lifting. He denies any bladder or bowel incontinence, saddle paresthesia, numbness and tingling weakness into the legs. He states that he does have a little bit of pain into the glutes. He does not use any IV drugs. He has not been running a fever. He states [id number] pain medicines have not been helping him. He states he feels like the pain, shoots down into his pelvis little. He denies any abdominal pain, chest pain, shortness of breath, urinary problems, urinary retention, urinary frequency, hematuria. Admits to a history of breaking several bones in his lumbar spine when he was in his 20s. - Related Data Allergies/Adverse Reactions: No Known Allergies Allergy (Verified 05/04/19 12:02) Past Medical History - General Information source: Patient - Social History Smoking Status: Former Smoker Frequency of alcohol use: Daily Drug Abuse: None Lives with: Spouse/Significant other Family History: Reviewed & Not Pertinent, CAD Patient has suicidal ideation: No Patient has homicidal ideation: No - Past Medical History Cardiac Medical History: Denies: Hx Coronary Artery Disease, Hx Heart Attack Neurological Medical History: Denies: Hx Cerebrovascular Accident, Hx Seizures Endocrine Medical History: Denies: Hx Diabetes Mellitus Type 1, Hx Diabetes Mellitus Type 2 Renal/ Medical History: Denies: Hx Peritoneal Dialysis Musculoskeletal Medical History: Reports Hx Musculoskeletal Trauma Traumatic Medical History: Reports: Hx Fractures Past Surgical History: Reports: Hx Orthopedic Surgery - right femur - Immunizations Immunizations up to date: Yes Hx Diphtheria, Pertussis, Tetanus Vaccination: Yes Review of Systems - Review of Systems Constitutional: denies: Chills, Fever EENT: No symptoms reported Cardiovascular: denies: Chest pain, Palpitations, Heart racing, Orthopnea, Dyspnea, Syncope, Dizziness, Lightheaded Respiratory: denies: Cough, Short of breath Gastrointestinal: denies: Abdominal pain, Diarrhea, Nausea, Vomiting Genitourinary: denies: Frequency, Flank pain, Hematuria, Incontinence Musculoskeletal: See HPI, Back pain Skin: No symptoms reported. denies: Rash Neurological/Psychological: No symptoms reported -: Yes All other systems reviewed and negative Physical Exam - Vital signs Vitals: Temp Pulse BP Pulse Ox 97.9 F 91 148/103 H 98 05/04/19 11:51 05/04/19 11:51 05/04/19 11:51 05/04/19 11:51 Interpretation: Normal - General General appearance: Appears well, Alert In distress: None - HEENT Head: Normocephalic, Atraumatic Eyes: Normal Pupils: PERRL - Respiratory Respiratory status: No respiratory distress Chest status: Nontender. No: Accessory muscle use Breath sounds: Normal. No: Rales, Rhonchi, Stridor, Wheezing Chest palpation: Normal - Cardiovascular Rhythm: Regular Heart sounds: Normal auscultation Murmur: No - Abdominal Inspection: Normal Distension: No distension Bowel sounds: Normal Tenderness: Nontender. No: McBurney's point, Fierro's sign, Guarding, Rebound Organomegaly: No organomegaly - Back Back: Tender - There is tenderness to palpation to the midline thoracic's spine starting at the level of T5. Patient also has tenderness to palpation over the midline lumbar spine. He has notable paraspinal spasms to the thoracic and lumbar region. He has negative straight leg raise bilaterally. - Extremities General upper extremity: Normal inspection, Nontender, Normal color, Normal ROM, Normal temperature General lower extremity: Normal inspection, Nontender, Normal color, Normal ROM, Normal temperature, Normal weight bearing. No: Freddy's sign - Neurological Neuro grossly intact: Yes Cognition: Normal Orientation: AAOx4 [place] Coma Scale Eye Opening: Spontaneous [place] Coma Scale Verbal: Oriented [place] Coma Scale Motor: Obeys Commands [place] Coma Scale Total: 15 Speech: Normal Cranial nerves: Normal Cerebellar coordination: Normal. 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 No: Pronator drift Sensory: Normal - Psychological Associated symptoms: Normal affect, Normal mood - Skin Skin Temperature: Warm Skin Moisture: Dry Skin Color: Normal Course - Re-evaluation Re-evalutation: 05/04/19 Impression: Lumbar strain, thoracic strain no acute abnormalities on x-rays. Noted slight scoliosis. Patient is feeling better after medications here in the emergency department. He has no emergent back symptoms. He has negative straight leg raise bilaterally. He is able to get up and walk around in the emergency department. He has reassuring vital signs. Will discharge home with NSAIDs, muscle relaxants, small amount of [place]. We will have him follow-up with orthopedics. Have urged him to return if any worsening symptoms such as fever, bladder bowel incontinence, urinary retention, saddle paresthesia, inability to walk. He agrees with the plan. - Vital Signs Vital signs: Temp Pulse Resp BP Pulse Ox 98.6 F 89 16 140/80 H 99 05/04/19 14:54 05/04/19 14:54 05/04/19 14:54 05/04/19 14:54 05/04/19 14:54 - Diagnostic Test Radiology reviewed: Image reviewed, Reports reviewed Discharge - Discharge Clinical Impression: Muscle spasm Thoracic myofascial strain Qualifiers: Encounter type: initial encounter Qualified Code(s): S29.019A - Strain of muscle and tendon of unspecified wall of thorax, initial encounter Lumbar strain Qualifiers: Encounter type: initial encounter Qualified Code(s): S39.012A - Strain of muscle, fascia and tendon of lower back, initial encounter Condition: Stable Disposition: HOME, SELF-CARE Instructions: Low Back Pain ([facility]), Muscle Strain ([facility]), Warm Packs ([facility]) Additional Instructions: TAKE MEDICINES PRESCRIBED. RETURN IF WORSE. PUSH FLUIDS. FOLLOW UP WITH ORTHOPEDIST. RETURN IF WORSENING PAIN, INABILITY TO WALK, LOSS OF BLADDER OR BOWEL CONTROL, UNABLE TO URINATE, FEVERS, OR ANY OTHER CONCERNING SYMPTOMS. Prescriptions: Cyclobenzaprine HCl [Flexeril 10 mg Tablet] 10 mg PO TID #15 tablet Naproxen [Naprosyn] 500 mg PO BID #20 tablet Hydrocodone/Acetaminophen [[place] 5-325 mg Tablet] 1 tab PO Q6H #9 tablet Referrals: PRASHANTH MACHADO JR, DO [ACTIVE PROVISIONAL STAFF] - Follow up in 1 week
[2019-05-04] MEDS ORDERED: HYDROCODONE/ACETAMINOPHEN 5-325 MG TABLET PO ONE (13:01)
--- NOTE | 2019-05-04 13:46 | RADIOLOGY REPORT (SQ) ---
EXAM DESCRIPTION: L SPINE WHOLE; T SPINE AP/LAT COMPLETED DATE/TIME: 05/04/2019 1:29 pm REASON FOR STUDY: midline lumbar pain; midline thoracic pain COMPARISON: None. FINDINGS: Two view thoracic spine: Very slight lower thoracic convex right curvature. Otherwise no rmal alignment. No fracture. Soft tissues normal. Five view lumbosacral spine including obliques: Convex left mild scoliotic curve. L2-3 and L3-4 mild retrolisthesis with multilevel disc space narrowing in the upper lumbar spine. No pars defect. Fac et arthropathy. No fracture. TECHNICAL DOCUMENTATION: JOB ID: [id number] Reading location - IP/workstation name: [email or web address] EXECUTIVE OR MANAGING [email or web address]
--- NOTE | 2019-05-04 13:46 | RADIOLOGY REPORT (SQ) ---
EXAM DESCRIPTION: L SPINE WHOLE; T SPINE AP/LAT COMPLETED DATE/TIME: 05/04/2019 1:29 pm REASON FOR STUDY: midline lumbar pain; midline thoracic pain COMPARISON: None. FINDINGS: Two view thoracic spine: Very slight lower thoracic convex right curvature. Otherwise no rmal alignment. No fracture. Soft tissues normal. Five view lumbosacral spine including obliques: Convex left mild scoliotic curve. L2-3 and L3-4 mild retrolisthesis with multilevel disc space narrowing in the upper lumbar spine. No pars defect. Fac et arthropathy. No fracture. TECHNICAL DOCUMENTATION: JOB ID: [id number] Reading location - IP/workstation name: [email or web address]
[2019-05-04 14:56] VITALS: BP 140/80
== END 2019-05-04 14:57 | disposition home or self-care (01) ==
LOC: ER 11:45
DX: S29.019A Strain of muscle and tendon of unspecified wall of thorax, initial encounter (principal); S39.012A Strain of muscle, fascia and tendon of lower back, initial encounter; M62.830 Muscle spasm of back; M54.9 Dorsalgia, unspecified; X58.XXXA Exposure to other specified factors, initial encounter; Z87.891 Personal history of nicotine dependence
CPT/HCPCS: 99283; 96372; 72110; 72070; J1885; J1100

== ENCOUNTER 2020-05-12 04:11 | Emergency (ER) | payer BC ==
[2020-05-12 04:19] VITALS: BP 145/96
--- NOTE | 2020-05-12 05:32 | RADIOLOGY REPORT (SQ) ---
EXAM DESCRIPTION: XR SHOULDER 2 OR MORE VIEWS COMPLETED DATE/TME: 05/12/2020 05:00 CLINICAL HISTORY: 49 years, Male, PAIN COMPARISON: None. FINDINGS: No fracture or dislocation. Degenerative changes of the AC joint. Soft tissues are unremarkable. IMPRESSION: No acute abnormality.
== END 2020-05-12 07:33 | disposition left against medical advice (07) ==
LOC: ER 04:11
DX: Z53.21 Procedure and treatment not carried out due to patient leaving prior to being seen by health care provider (principal)